=== PATIENT | male | born 1990 | race Caucasian/White ===

== ENCOUNTER 2022-07-15 12:35 | Emergency (ER) | payer MEDICAID, OTHER ==
[~2022-07-15] VITALS: Ht 167.6 cm; Wt 82.0 kg
[2022-07-15 14:24] LABS: BASOPHILS % 0.6 % (0.0-2.0); EOSINOPHILS % 1.2 % (0.0-5.0); HEMATOCRIT. 46.5 % (42.0-52.0); HEMOGLOBIN. 15.7 g/dL (14.0-18.0); LYMPHOCYTES % 15.7 % (20.0-50.0); MEAN CORPUSCULAR HEMOGLOBIN 29.2 pg (28.0-32.0); MEAN CORPUSCULAR VOLUME 86.7 fL (80.0-94.0); MEAN PLATELET VOLUME 8.1 fl (7.4-10.4); MONOCYTES % 9.6 % (2.0-8.0); NEUTROPHILS % 72.9 % (40.0-76.0); PLATELET 268 x1000/uL (130-400); RED BLOOD CELL COUNT 5.36 mill/uL (4.7-6.1); RED CELL DISTRIBUTION WIDTH 14.7 % (11.6-14.6)
[2022-07-15 14:31] LABS: CHLORIDE 104 mEq/L (98-107)
[2022-07-15] MEDS ORDERED: SODIUM CHLORIDE 0.9% 1,000 ML IV ONE (15:15)
[2022-07-15 16:32] VITALS: BP 102/53
== END 2022-07-15 16:33 | disposition home or self-care (01) ==
LOC: ER 12:40
DX: R55 Syncope and collapse (principal)
CPT/HCPCS: 36415; 80053; 85025; 93005; 96360; 99284; J7030

== ENCOUNTER 2023-09-22 18:09 | Emergency (ER) | payer MEDICAID, OTHER ==
[~2023-09-22] VITALS: Ht 175.3 cm; Wt 73.0 kg
[2023-09-22 18:14] VITALS: BP 145/75; RESP 16; TEMP 98.2; O2SAT 100
[2023-09-22 18:16] VITALS: PULSE 89
== END 2023-09-22 20:45 | disposition home or self-care (01) ==
LOC: ER 18:09
DX: Z46.89 Encounter for fitting and adjustment of other specified devices (principal); F12.10 Cannabis abuse, uncomplicated
CPT/HCPCS: 29505; 99283

== ENCOUNTER 2024-04-25 16:36 | Emergency (ER) | payer MEDICAID ==
[~2024-04-25] VITALS: Ht 167.6 cm; Wt 70.0 kg
[2024-04-25 16:44] VITALS: O2SAT 98
[2024-04-25] MEDS: KETOROLAC 15MG/ML VIAL IM ONE (17:30)
[2024-04-25] MEDS ORDERED: NAPR-1176 MT (17:49)
[2024-04-25 18:00] VITALS: BP 110/61; PULSE 82; RESP 17; TEMP 36.66960; O2SAT 100
== END 2024-04-25 18:30 | disposition home or self-care (01) ==
LOC: ER 16:36
DX: S92.251A Displaced fracture of navicular [scaphoid] of right foot, initial encounter for closed fracture (principal); F12.10 Cannabis abuse, uncomplicated; W05.1XXA Fall from non-moving nonmotorized scooter, initial encounter; Y93.89 Activity, other specified; Y92.89 Other specified places as the place of occurrence of the external cause; Y99.8 Other external cause status
CPT/HCPCS: 73090; 73130; 29125; 96372; 99284; J1885; Z7610